=== PATIENT | male | born 1960 ===

== ENCOUNTER 2021-09-22 09:54 | Emergency (ER) | payer BC, SELFPAY ==
[2021-09-22 10:11] VITALS: BP 141/97; PULSE 97; RESP 18; TEMP 36.2; O2SAT 94
[2021-09-22 10:21] LABS: Basophils Absolute Auto 0.1 K/mm3 (0.0-0.1); Basophils Percent Auto 0.4 % (0.2-1.2); Eosinophils Percent Auto 0.3 % (0-4.4); Hematocrit 48.5 % (42.0-52.0); Hemoglobin 17.4 g/dL (14.0-18.0); Immature Granulocyte Absolute 0.05 K/mm3 (0.00-0.031); Immature Granulocyte Percent A 0.4 % (0-0.5); Lymphocytes Absolute Auto 0.52 K/mm3 (0.9-3.2); Lymphocytes Percent Auto 4.5 % (18.3-44.2); Mean Corpuscular HGB Conc 35.9 g/dl (32-36); Mean Corpuscular Hemoglobin 30.6 pg (26-34); Mean Corpuscular Volume 85.4 fl (80-100); Mean Platelet Volume 10.4 fl (7.4-10.4); Monocytes Absolute Auto 1.3 K/mm3 (0.1-0.6); Monocytes Percent Auto 11.1 % (2.6-8.5); Neutrophils Absolute Auto 9.5 K/mm3 (1.3-6.7); Neutrophils Percent Auto 83.3 % (45.5-73.1); Platelet Count Result 223 k/mm3 (150-375); Red Blood Count 5.68 M/mm3 (4.6-6.20); Red Cell Distribution Width 12.2 % (11.5-14.5); White Blood Count 11.5 K/mm3 (4.5-10.0)
[2021-09-22 10:36] LABS: Alanine Aminotransferase 47 U/L (4-50); Albumin Level 4.9 g/dL (3.5-5.1); Alkaline Phosphatase 110 U/L (38-126); Anion Gap 13 mmol/L (8-16); Aspartate Amino Transferase 34 U/L (17-59); Bilirubin,Total 2.7 mg/dL (0.2-1.3); Blood Urea Nitrogen 24 mg/dL (9-20); Calcium 9.4 mg/dL (8.4-10.2); Carbon Dioxide 20 mmol/L (22-30); Chloride 100 mmol/L (98-107); Estimated CRCL calculation 68 ml/min; Estimated Glomerular Filt Rate > 60; Glucose 165 mg/dL (65-110); Lipase 74 U/L (23-300); Potassium 3.8 mmol/L (3.4-5.0); Sodium 133 mmol/L (137-145)
[2021-09-22 11:57] VITALS: BP 143/88; PULSE 91
[2021-09-22 11:58] VITALS: BP 118/105; PULSE 101
[2021-09-22 12:00] VITALS: BP 117/70; PULSE 111
[2021-09-22] MEDS: SODIUM CHLORIDE 0.9% IV 1,000 ML 999 ML IV CONT (13:08)
[2021-09-22] MEDS: ONDANSETRON INJ 4 MG/2 ML VIAL IV PUSH (13:08)
--- NOTE | 2021-09-22 13:28 | PC.NURSE ---
Pt reminded again that urine sample is still needed. Pt verbalizes understanding. Call light within reach.
--- NOTE | 2021-09-22 13:52 | PC.NURSE ---
Pt to restroom to attempt to provide urine sample.
[2021-09-22 14:26] LABS: Add Urine Microscopic? YES; Appearance Urine Cloudy (Clear); Bilirubin Urine Negative (Negative); Blood Urine Negative (Negative); Color Urine Amber (Yellow); Glucose Urine UA Negative (Negative); Ketones Urine Negative (Negative); Leukocyte Esterase Ur Negative LEU/UL (Negative); Mucus Urine Heavy /lpf; Nitrate Urine Negative (Negative); Protein Urine 1+ mg/dL (Negative); Squamous Epithelial Cell Urine Occasional /hpf (Few); WBC Urine 0-3 /hpf
[2021-09-22 14:42] LABS: Specific Grav Ur 1.032 (1.001-1.035)
[2021-09-22 14:56] VITALS: BP 133/68; PULSE 73; RESP 16; O2SAT 94
--- NOTE | 2021-09-22 15:06 | ED.NAVMDI ---
HPI - Nausea/Vomiting/Diarrhea General Chief complaint: Nausea/Vomiting/Diarrhea Stated complaint: Abdominal pain. NVD Time Seen by Provider: 09/22/21 12:03 History of Present Illness HPI Narrative: Patient is a 7-year-old male who presents ER with nausea vomiting as well as crampy abdominal pain. Ongoing since last night. Was unable to sleep. Upon arrival here he began having diarrhea. No fevers or chills or sweats. No known sick contacts. No chest pain or chest pressure. No difficulty breathing. No alleviating factors. Related Data Home Medications Medication Instructions Recorded Confirmed clonidine HCl PO 09/22/21 omeprazole PO 09/22/21 Allergies Allergy/AdvReac Type Severity Reaction Status Date / Time No Known Drug Allergies Allergy Unknown Other Verified 09/22/21 11:59 Review of Systems Review of Systems: All systems reviewed & are unremarkable except as noted in HPI and below Constitutional: Constitutional: Denies chills, Denies fever(s) and Denies weakness ENT: Denies nasal congestion and Denies sore throat Cardiovascular: Cardiovascular: Denies chest pain, Denies rapid heart rate and Denies radiating jaw, neck or arm pain Respiratory: Respiratory: Denies cough, Denies dyspnea and Denies wheezing Gastrointestinal: Gastrointestinal: Reports abdominal pain, Reports diarrhea, Reports nausea and Reports vomiting Genitourinary: Genitourinary: Denies dysuria and Denies urinary frequency PMFSH Past Medical History Medical History (Updated 09/22/21 @ 15:13 by Buddy Mace MD) Hypertension Surgical History Surgical History (Updated 09/22/21 @ 15:13 by Buddy Mace MD) No pertinent past surgical history Family History Family History (Updated 06/21/14 @ 07:13 by DOCTOR UNKNOWN) Mother Hypertension Father Family history of heart disease in male family member before age 55 Social History Social History Smoking status: Former smoker Exam Narrative: GENERAL: Well-appearing, well-nourished, and in no acute distress. HEAD: Normocephalic, atraumatic. ENT: Mucous membranes moist. CHEST: Clear to auscultation. No respiratory distress. HEART: Regular rate and rhythm. Normal peripheral pulses. ABDOMEN: Soft, nontender, nondistended. EXTREMITIES: Normal range of motion. No edema. SKIN: Warm, dry, no rash. NEURO: Alert and oriented x3. PSYCH: Normal mood and affect. Course Course Emergency Course: Patient feels much better after IV fluids and Zofran. No more emesis. Ready for discharge. Vital Signs Vital signs: Vital Signs Temperature 97.2 F L 09/22/21 10:11 Pulse Rate 97 09/22/21 10:11 Respiratory Rate 18 09/22/21 10:11 Blood Pressure 141/97 H 09/22/21 10:11 Pulse Oximetry 94 09/22/21 10:11 Temperature 97.2 F L 09/22/21 10:11 Pulse Rate 73 09/22/21 14:56 Respiratory Rate 16 09/22/21 14:56 Blood Pressure 133/68 09/22/21 14:56 Pulse Oximetry 94 09/22/21 14:56 MDM - Nausea/Vomiting/Diarrhea Lab Data Result diagrams: 09/22/21 10:16 09/22/21 10:16 Labs: Lab Results 09/22/21 09/22/21 09/22/21 Range/Units 10:16 10:16 14:03 WBC 11.5 H (4.5-10.0) K/mm3 RBC 5.68 (4.6-6.20) M/mm3 Hgb 17.4 (14.0-18.0) g/dL Hct 48.5 (42.0-52.0) % MCV 85.4 (80-100) fl MCH 30.6 (26-34) pg MCHC 35.9 (32-36) g/dl RDW 12.2 (11.5-14.5) % Plt Count 223 (150-375) k/mm3 MPV 10.4 (7.4-10.4) fl Immature Gran % (Auto) 0.4 (0-0.5) % Neut % (Auto) 83.3 H (45.5-73.1) % Lymph % (Auto) 4.5 L (18.3-44.2) % [place] % (Auto) 11.1 H (2.6-8.5) % Eos % (Auto) 0.3 (0-4.4) % Baso % (Auto) 0.4 (0.2-1.2) % Lymph # (Auto) 0.52 L (0.9-3.2) K/mm3 [place] # (Auto) 1.3 H (0.1-0.6) K/mm3 Eos # (Auto) 0.0 (0-0.3) K/mm3 Baso # (Auto) 0.1 (0.0-0.1) K/mm3 Abs Immat Gran (auto) 0.05 H (0.00-0.031) K/mm3 Absolute Neuts (auto) 9.5 H (1.3-6.7)
== END 2021-09-22 15:23 | disposition home or self-care (01) ==
PROVIDERS: Emergency Medicine; Emergency Provider Emergency Medicine
DX: K52.9 Noninfective gastroenteritis and colitis, unspecified (principal); I10 Essential (primary) hypertension
CPT/HCPCS: 36415; 80053; 81001; 83690; 85025; 96361; 96374; 99284; J2405; J7030

== ENCOUNTER 2024-07-30 06:42 | Emergency (ER) | payer BC, SELFPAY ==
[2024-07-30 06:43] VITALS: BP 155/100; PULSE 67; RESP 14; TEMP 36.9; O2SAT 98
--- NOTE | 2024-07-30 07:44 | PC.NURSE ---
70mL of urine on bladder scanner
--- NOTE | 2024-07-30 08:03 | ED.GENADULT ---
HPI - General Adult General Chief complaint: Urogenital-Male Stated complaint: urinary retention since wednesday Time Seen by Provider: 07/30/24 06:58 History of Present Illness HPI narrative: 64-year-old male presenting to the emergency department for evaluation for suspected urinary tract infection. Patient does have a prior history of a UTI. Patient does not take any medications for urinary retention. Patient felt that he was having some bladder spasm possible urinary retention. Patient states he develops and urgency but does not urinate very much. Postvoid residual bladder scan done in the emergency department only shows 70 mL of retained urine. Related Data Home Medications Medication Instructions Recorded Confirmed clonidine HCl 0.1 mg tablet PO 09/22/21 omeprazole 40 mg capsule,delayed PO 09/22/21 release Allergies Allergy/AdvReac Type Severity Reaction Status Date / Time No Known Drug Allergies Allergy Unknown Other Verified 07/30/24 09:19 Review of Systems Review of Systems: All systems reviewed & are unremarkable except as noted in HPI and below PMFSH Past Medical History Medical History (Updated 07/30/24 @ 09:14 by Mckay Ferrera MD) Hypertension Surgical History Surgical History (Updated 09/22/21 @ 15:13 by Buddy Mace MD) No pertinent past surgical history Family History Family History (Updated 06/21/14 @ 07:13 by DOCTOR UNKNOWN) Mother Hypertension Father Family history of heart disease in male family member before age 55 Social History Social History Smoking status: Former smoker Exam Narrative: APPEARANCE: Well appearing, no pain, no distress, well-nourished. HEAD: normocephalic, atraumatic. EYES: PERRLA/EOMI, conjunctivae clear. NOSE: Normal no drainage EARS:TMS clear with good light reflex. THROAT: Pharynx clear, no exudate. NECK: Supple. No adenopathy, no masses. RESPIRATORY: Airway patent, respirations nonlabored. Clear to auscultation bilaterally, no rales, rhonchi, wheezing. CARDIOVASCULAR: Regular rate and rhythm without murmurs rubs or gallops. ABDOMINAL: Soft, nontender, nondistended, normal bowel sounds MUSCULOSKELETAL: Moves all extremities. Strength/ROM intact, No edema, No calf tenderness. NEURO: Alert. Cranial nerves II through XII intact. Good gait. Good coordination SKIN: Warm, dry. Normal Color PSYCHIATRIC: Normal affect/mood. Course Course Emergency Course: Patient was started on antibiotics for suspected urinary tract infection. Patient was also started on Flomax for reported symptoms of urinary retention. Vital Signs Vital signs: Vital Signs Temperature 98.4 F 07/30/24 06:43 Pulse Rate 67 07/30/24 06:43 Respiratory Rate 14 07/30/24 06:43 Blood Pressure 155/100 H 07/30/24 06:43 Pulse Oximetry 98 07/30/24 06:43 Oxygen Delivery Room Air 07/30/24 06:43 Temperature 98.4 F 07/30/24 06:43 Pulse Rate 67 07/30/24 06:43 Respiratory Rate 14 07/30/24 06:43 Blood Pressure 155/100 H 07/30/24 06:43 Pulse Oximetry 98 07/30/24 06:43 Oxygen Delivery Room Air 07/30/24 06:43 Medical Decision Making MDM Narrative Medical decision making narrative: 64-year-old male present to the ED for evaluation for suspected urinary tract infection or urinary retention. Patient had no significant urinary retention noted on postvoid residual bladder scan. UA was positive for leukocyte esterase and high blood cells. Urine culture was ordered. Being started on Flomax and antibiotics for UTI. Patient is also being provided follow-up with Urology. Differential Diagnosis Differential Diagnosis: UTI, urinary retention, acute kidney injury Vital Signs Vital Signs: Vital Signs Temperature 98.4 F 07/30/24 06:43 Pulse Rate 67 07/30/24 06:43 Respiratory Rate 14 07/30/24 06:43 Blood Pressure 155/100 H 07/30/24 06:43 Pulse Oximetry 98 07/30/24 06:43 Oxygen Delivery Room Air 07/30/24 06:43
[2024-07-30 08:21] LABS: Add Urine Microscopic? YES; Appearance Urine Clear (Clear); Bacteria Urine None Seen /hpf; Bilirubin Urine Negative (Negative); Blood Urine Negative (Negative); Color Urine Yellow (Yellow); Glucose Urine UA Negative (Negative); Ketones Urine Negative (Negative); Leukocyte Esterase Ur 2+ LEU/UL (Negative); Nitrate Urine Negative (Negative); Non Pathogenic Casts 0-2; Protein Urine Negative (Negative); RBC Urine 0-2 /hpf (0-2); Specific Grav Ur 1.016 (1.001-1.035); Squamous Epithelial Cell Urine None Seen /hpf (Few); pH Urine 5.5 (5.0-9.0)
[2024-07-30] MEDS: TAMSULOSIN HCL 0.4 MG CAPSULE PO (09:19)
[2024-07-30] MEDS: PHENAZOPYRIDINE HCL 100 MG TABLET 200 MG PO (09:19)
[2024-07-30] MEDS: CEPHALEXIN 500 MG CAPSULE PO (09:19)
== END 2024-07-30 09:25 | disposition home or self-care (01) ==
PROVIDERS: Emergency Medicine; Emergency Provider Emergency Medicine; PCP Family Medicine
DX: N39.0 Urinary tract infection, site not specified (principal); R33.9 Retention of urine, unspecified; I10 Essential (primary) hypertension; Z87.891 Personal history of nicotine dependence
CPT/HCPCS: 81001; 87086; 99283; A9270